=== PATIENT | female | born 1960 | race Caucasian/White ===

== ENCOUNTER 2020-06-28 13:51 | Inpatient (IN) ==
--- OUTSIDE RECORDS SUMMARY | 2020-06-28 13:53 | External Medical Summary | Continuity of Care Document ---
:1960 Author Name Cat Palencia, Provider Address Unavailable Unavailable , Care Team Providers Name Role Phone NonMNPG Talha, Provider Unavailable [email or web address] Unavailable Unavailable Problems Active medical history not documented Allergies and Adverse Reactions Allergy history not documented Medications Medications not documented Procedures Procedures not documented Immunizations Immunizations not documented Plan of Treatment Planned Observations Planned Goals not documented Results No Known Results Results not documented
--- OUTSIDE RECORDS SUMMARY | 2020-06-28 13:54 | External Medical Summary | Continuity of Care Document ---
:1960 Author Name Cat Palencia, Provider Address Unavailable Unavailable , Care Team Providers Name Role Phone NonMNPG Talha, Provider Unavailable [email or web address] Unavailable Unavailable Problems Active medical history not documented Allergies and Adverse Reactions Allergy history not documented Medications Medications not documented Procedures Procedures not documented Immunizations Immunizations not documented Plan of Treatment Planned Observations Planned Goals not documented Results No Known Results Results not documented
--- NOTE | 2020-06-28 13:55 | Emergency Department Note ---
Impression & Plan Acute dyspnea, COVID-19, Pneumonitis, Hypoxia ED Provider Note NAME: NAVIN REAVES AGE: 59 SEX: F : 1960 ARRIVES VIA: Walk-In INFORMANT: Patient, ED PROVIDER(S): Giovanni Alcala MD Chief Complaint: Shortness of breath HPI: Patient does present with worsening shortness of breath. The patient states that it is exertional. Patient does have a known history of COPD. The patient states that she has had symptoms since last Monday so approximately 8 days. The patient states she was at a family gathering prior and then was subsequently tested this past Monday with the patient does have a positive C OVID test. The patient was given a pulse oximeter and was told to return if she develops any worsening or concerning symptoms. Patient states that she did feel somewhat better yesterday and does use her inhalers. Patient states that she felt worse today with associated fatigue and shortness of breath. The patient does not have any at home oxygen to use. Patient denies any history of DVT or PE. Patient is a former smoker smoking 2 years prior. Patient does have some chest pain but only associated with cough. The patient denies any fevers or chills or lower extremity swelling. ROS: See HPI for pertinent positives and negatives. A total of 10 systems were reviewed and otherwise negative. Past medical history: See below Surgical history: See below Social history: See below Physical Exam: GENERAL: Mildly ill in appearance, mild distress. Wearing glasses and a mask. EYE EXAM: Normal conjunctiva. PERRL, no anisocoria and EOM's grossly intact w/o pain. NECK: Supple, no nuchal rigidity, no adenopathy, non-tender. No signs of meningismus. LUNGS: No audible wheezing, mild tachypnea noted. HEART: Tachycardic and regular, no MRG. ABDOMEN: Abdomen soft, non-tender, normo-active bowel sounds, no masses, no rebound or guarding. BACK: No CVA TTP. SKIN: No rashes and no bruising. UPPER EXTREMITIES: Upper extremities are grossly normal. LOWER EXTREMITIES: Grossly normal, no edema. Negative Homans sign bilaterally. NEURO EXAM: A&O x3, cranial nerves II-XII grossly intact, normal speech, moves all 4 extremities on command w/o issue. Differential diagnoses: Reactive airway disease, pneumonia, pneumothorax, COPD, CHF, infections, cardiac ischemia, pulmonary embolism, musculoskeletal, gastrointestinal, as well as other pathologies. Course: Patient was seen and evaluated the bedside. Full history physical exam was performed. EKG: Indication: Shortness of breath Sinus tachycardia, rate of 102, normal intervals, normal axis, slight depressions in the lateral leads, no T wave inversions. Depressions as well as the patient's increase in rate are new from comparison EKG September 16, 2015. Imaging Studies: Radiology results as stated below per my review in the radiologist's interpretation: XR chest 1V portable HISTORY: 59 years-old Female weakness acute weakness COMPARISON: Chest and rib radiographs 09/16/2015 TECHNIQUE: Portable AP view of the chest FINDINGS: Cardiomediastinal and hilar silhouettes are within normal limits. There is mild interstitial coarsening of the mid and lower lung zones which is new from comparison. No pneumothorax, large pleural effusion or overt pulmonary edema. Mild blunting of the lateral costophrenic angles. Lungs are mildly hyperinflated. Bones appear grossly intact. IMPRESSION: Mild interstitial coarsening of the mid and lower lung zones is new from the 2015 exam. Differential considerations would include a nonspecific atypical pneumonitis versus fibrotic changes. ACT 112: Negative or not required by law. The above report was generated using voice recognition software. It may contain grammatical, syntax or spelling errors. Electronically signed by: Jose Manuel Yoon M.D. 06/28/2020 4:18 PM Dictated: 06/28/20 1616 Transcribed: 06/28/20 1616 Cardiac monitoring: An order was placed for continuous cardiac monitoring. The monitor shows a rate of 106 with sinus tachycardia rhythm. MDM: Patient was seen due to shortness of breath and the patient is already had a positive cover test. Blood work was obtained. The patient did receive a dose of steroids and was placed on nasal cannula oxygen. Patient has a normal white count H&H and platelet count. The patient does have mild lymphopenia. Patient's kidney function is unremarkable. Troponin is undetectable. The patient did have some slight EKG changes but I believe this may be rate related and due to her concomitant COVID illness. The patient upon reassessment feeling improved but given the patient's history of COPD, positive coronavirus test, and necessary supplemental oxygen I believe the patient would be better suited for admission at this time. I did speak with the on-call hospitalist Dr. Lomeli and the patient was admitted to the [facility] service. Critical Care: I have personally spent 35 minutes of critical care time in direct management of this patient. This includes bedside care, interpretation of diagnostic studies, and testing, discussion with consultants, patient, and family members, and other require inpatient management activities. This 35 minutes is in excess of all separately billable procedures. Past Med/Surg History Medical History COPD (chronic obstructive pulmonary disease) Surgical History No pertinent past surgical history Social History Smoking Status: Former smoker Feels Safe at Home: Yes Allergies Allergies Allergy/AdvReac Type Severity Reaction Status Date / Time No Known Allergies Allergy Unverified 06/28/20 15:20 Home Meds Home Medications Medication Instructions Recorded Confirmed acetaminophen [Tylenol Extra 1,000 mg PO Q6H PRN 06/28/20 06/28/20 Strength] albuterol sulfate 2 inh INHALATION UD PRN 06/28/20 06/28/20 buspirone 10 mg PO BID PRN 06/28/20 06/28/20 fluticasone furoate-vilanterol 1 inh INHALATION DAILY 06/28/20 06/28/20 [Breo Ellipta] multivitamin 1 tab PO DAILY 06/28/20 06/28/20 umeclidinium [Incruse Ellipta] 1 inh INHALATION DAILY 06/28/20 06/28/20 Results & Data (ED) Vital Signs Vital Signs - 24 hr 06/28/20 13:58 06/28/20 14:02 06/28/20 14:28 Temperature 37.2 C Temperature Source Oral Pulse Rate 98 H 106 H Pulse Rate from SpO2 Sensor 92 H Respiratory Rate 21 26 H Blood Pressure 152/89 H 152/89 H Blood Pressure Mean 96 110 Pulse Oximetry 97 91 90 Oxygen Delivery Method Nasal Cannula Room Air Nasal Cannula Oxygen Flow Rate 2 Sepsis Recent Fever Within 48 Hours No Sepsis New/Unexplained Change in Mental Status No Sepsis Action Taken by Nursing Physician Notified Oxygen Flow Rate - Titration 2 Pulse Oximetry Post Tiitration 97 06/28/20 14:41 06/28/20 14:50 06/28/20 15:00 Temperature Temperature Source Pulse Rate 90 89 89 Pulse Rate from SpO2 Sensor 80 78 84 Respiratory Rate 20 26 H 22 Blood Pressure Blood Pressure Mean Pulse Oximetry 97 97 97 Oxygen Delivery Method Oxygen Flow Rate Sepsis Recent Fever Within 48 Hours Sepsis New/Unexplained Change in Mental Status Sepsis Action Taken by Nursing Oxygen Flow Rate - Titration Pulse Oximetry Post Tiitration 06/28/20 15:10 06/28/20 15:12 06/28/20 17:43 Temperature Temperature Source Pulse Rate 82 85 Pulse Rate from SpO2 Sensor 82 84 Respiratory Rate 19 24 Blood Pressure 126/86 146/69 H Blood Pressure Mean 90 85 Pulse Oximetry 97 92 Oxygen Delivery Method Nasal Cannula Oxygen Flow Rate 2 Sepsis Recent Fever Within 48 Hours Sepsis New/Unexplained Change in Mental Status Sepsis Action Taken by Nursing Oxygen Flow Rate - Titration Pulse Oximetry Post Tiitration Home Medications Current Medication List: was personally reviewed by me Laboratory Data Attestation: I reviewed the patient's lab results. Result diagrams: 06/28/20 15:10 06/28/20 15:10 Lab Results 06/28/20 06/28/20 06/28/20 Range/Units 15:10 15:10 15:10 WBC 8.59 (4.8-10.8) K/uL RBC 5.00 (4.2-5.4) M/uL Hgb 15.2 (12.0-16.0) g/dL Hct 43.1 (37-47) % MCV 86.2 (80-100) fL MCH 30.4 (25-34) pg MCHC 35.3 (32-36) g/dL RDW Std Deviation 38.7 (36.4-46.3) fL RDW Coeff of Karli 12.2 (11.5-14.5) % Plt Count 177 (130-400) K/uL MPV 9.1 (7.4-10.4) fL Immature Gran % (Auto) 0.1 % Neut % (Auto) 79.3 % Lymph % (Auto) 10.6 % Bay % (Auto) 9.8 % Eos % (Auto) 0.0 % Baso % (Auto) 0.2 % Neut # (Auto) 6.81 H (1.4-6.5) K/uL Lymph # (Auto) 0.91 L (1.2-3.4) K/uL Bay # (Auto) 0.84 H (0.11-0.59) K/uL Eos # (Auto) 0.00 (0-0.5) K/uL Baso # (Auto) 0.02 (0-0.2) K/uL Immature Gran # (Auto) 0.01 (0.00-0.02) K/uL ESR (0-21) mm/hr D-Dimer (0-500) ug/L FEU Sodium 135 L (136-145) mmol/L Potassium 3.6 (3.5-5.1) mmol/L Chloride 100 (98-107) mmol/L Carbon Dioxide 25 (21-32) mmol/L Anion Gap 10.0 (3-11) BUN 4 L (7-18) mg/dl Creatinine 0.53 L (0.6-1.2) mg/dl Est Cr Clr Drug Dosing 101.6 ml/min Est GFR ( Amer) 119.6 Est GFR (Non-Af Amer) 103.2 BUN/Creatinine Ratio 6.7 L (10-20) Glucose 89 (70-99) mg/dl Lactate 0.7 (0.4-2.0) mmol/L Calcium 8.2 L (8.5-10.1) mg/dl Magnesium 2.1 (1.8-2.4) mg/dl Ferritin (8-388) ng/ml Total Bilirubin 0.5 (0.2-1) mg/dl AST 24 (15-37) U/L ALT 34 (12-78) U/L Alkaline Phosphatase 53 (45-117) U/L Troponin I < 0.015 (0-0.045) ng/ml C-Reactive Protein (0-0.29) mg/dl Total Protein 7.1 (6.4-8.2) gm/dl Albumin 3.1 L (3.4-5.0) gm/dl Globulin 4.0 (2.5-4.0) gm/dl Albumin/Globulin Ratio 0.8 L (0.9-2) Procalcitonin (0-0.5) ng/ml TSH 0.560 (0.300-4.500) uIu/ml Urine Color Urine Appearance (Clear) Urine pH (4.5-7.5) Ur Specific [place] (1.000-1.030) Urine Protein (Negative) Urine Glucose (UA) (Negative) Urine Ketones (Negative) Urine Blood (Negative) Urine Nitrite (Negative) Urine Bilirubin (Negative) Urine Urobilinogen (Negative) Ur Leukocyte Esterase (Negative) Urine RBC (0-4) /hpf Urine WBC (0-5) /hpf Ur Epithelial Cells (0-5) /lpf Urine Bacteria (Negative) 06/28/20 06/28/20 06/28/20 Range/Units 15:10 15:10 15:10 WBC (4.8-10.8) K/uL RBC (4.2-5.4) M/uL Hgb (12.0-16.0) g/dL Hct (37-47) % MCV (80-100) fL MCH (25-34) pg MCHC (32-36) g/dL RDW Std Deviation (36.4-46.3) fL RDW Coeff of Karli (11.5-14.5) % Plt Count (130-400) K/uL MPV (7.4-10.4) fL Immature Gran % (Auto) % Neut % (Auto) % Lymph % (Auto) % Bay % (Auto) % Eos % (Auto) % Baso % (Auto) % Neut # (Auto) (1.4-6.5) K/uL Lymph # (Auto) (1.2-3.4) K/uL Bay # (Auto) (0.11-0.59) K/uL Eos # (Auto) (0-0.5) K/uL Baso # (Auto) (0-0.2) K/uL Immature Gran # (Auto) (0.00-0.02) K/uL ESR 31 H (0-21) mm/hr D-Dimer 230 (0-500) ug/L FEU Sodium (136-145) mmol/L Potassium (3.5-5.1) mmol/L Chloride (98-107) mmol/L Carbon Dioxide (21-32) mmol/L Anion Gap (3-11) BUN (7-18) mg/dl Creatinine (0.6-1.2) mg/dl Est Cr Clr Drug Dosing ml/min Est GFR ( Amer) Est GFR (Non-Af Amer) BUN/Creatinine Ratio (10-20) Glucose (70-99) mg/dl Lactate (0.4-2.0) mmol/L Calcium (8.5-10.1) mg/dl Magnesium (1.8-2.4) mg/dl Ferritin 288.6 (8-388) ng/ml Total Bilirubin (0.2-1) mg/dl AST (15-37) U/L ALT (12-78) U/L Alkaline Phosphatase (45-117) U/L Troponin I (0-0.045) ng/ml C-Reactive Protein 7.39 H (0-0.29) mg/dl Total Protein (6.4-8.2) gm/dl Albumin (3.4-5.0) gm/dl Globulin (2.5-4.0) gm/dl Albumin/Globulin Ratio (0.9-2) Procalcitonin (0-0.5) ng/ml TSH (0.300-4.500) uIu/ml Urine Color Urine Appearance (Clear) Urine pH (4.5-7.5) Ur Specific [place] (1.000-1.030) Urine Protein (Negative) Urine Glucose (UA) (Negative) Urine Ketones (Negative) Urine Blood (Negative) Urine Nitrite (Negative) Urine Bilirubin (Negative) Urine Urobilinogen (Negative) Ur Leukocyte Esterase (Negative) Urine RBC (0-4) /hpf Urine WBC (0-5) /hpf Ur Epithelial Cells (0-5) /lpf Urine Bacteria (Negative) 06/28/20 06/28/20 Range/Units 15:10 17:45 WBC (4.8-10.8) K/uL RBC (4.2-5.4) M/uL Hgb (12.0-16.0) g/dL Hct (37-47) % MCV (80-100) fL MCH (25-34) pg MCHC (32-36) g/dL RDW Std Deviation (36.4-46.3) fL RDW Coeff of Karli (11.5-14.5) % Plt Count (130-400) K/uL MPV (7.4-10.4) fL Immature Gran % (Auto) % Neut % (Auto) % Lymph % (Auto) % Bay % (Auto) % Eos % (Auto) % Baso % (Auto) % Neut # (Auto) (1.4-6.5) K/uL Lymph # (Auto) (1.2-3.4) K/uL Bay # (Auto) (0.11-0.59) K/uL Eos # (Auto) (0-0.5) K/uL Baso # (Auto) (0-0.2) K/uL Immature Gran # (Auto) (0.00-0.02) K/uL ESR (0-21) mm/hr D-Dimer (0-500) ug/L FEU Sodium (136-145) mmol/L Potassium (3.5-5.1) mmol/L Chloride (98-107) mmol/L Carbon Dioxide (21-32) mmol/L Anion Gap (3-11) BUN (7-18) mg/dl Creatinine (0.6-1.2) mg/dl Est Cr Clr Drug Dosing ml/min Est GFR ( Amer) Est GFR (Non-Af Amer) BUN/Creatinine Ratio (10-20) Glucose (70-99) mg/dl Lactate (0.4-2.0) mmol/L Calcium (8.5-10.1) mg/dl Magnesium (1.8-2.4) mg/dl Ferritin (8-388) ng/ml Total Bilirubin (0.2-1) mg/dl AST (15-37) U/L ALT (12-78) U/L Alkaline Phosphatase (45-117) U/L Troponin I (0-0.045) ng/ml C-Reactive Protein (0-0.29) mg/dl Total Protein (6.4-8.2) gm/dl Albumin (3.4-5.0) gm/dl Globulin (2.5-4.0) gm/dl Albumin/Globulin Ratio (0.9-2) Procalcitonin < 0.05 (0-0.5) ng/ml TSH (0.300-4.500) uIu/ml Urine Color Yellow Urine Appearance Clear (Clear) Urine pH 6.0 (4.5-7.5) Ur Specific [place] 1.010 (1.000-1.030) Urine Protein Negative (Negative) Urine Glucose (UA) Negative (Negative) Urine Ketones 3+ H (Negative) Urine Blood Negative (Negative) Urine Nitrite Negative (Negative) Urine Bilirubin Negative (Negative) Urine Urobilinogen Negative (Negative) Ur Leukocyte Esterase Trace H (Negative) Urine RBC 0-4 (0-4) /hpf Urine WBC 0-5 (0-5) /hpf Ur Epithelial Cells 20-30 H (0-5) /lpf Urine Bacteria 2+ H (Negative) Administered Medications Discontinued Medications Albuterol (Albuterol Hfa 8 Gm Inhaler) 2 puffs INH NOW ONE Stop: 06/28/20 14:19 Last Admin: 06/28/20 15:19 Dose: 2 puffs Documented by: [id number] Sodium Chloride (Nss) 500 mls @ 999 mls/hr IV .Q31M TESSA Stop: 06/28/20 14:45 Last Infusion: 06/28/20 15:49 Dose: 0 mls/hr Documented by: [id number] Admin: 06/28/20 15:18 Dose: 999 mls/hr Documented by: [id number] Dexamethasone Sodium Phosphate (10 mg/ Syringe) 2.5 mls @ 1 mls/min IV NOW STA Stop: 06/28/20 14:15 Last Admin: 06/28/20 15:18 Dose: 1 mls/min Documented by: [id number] Discharge Plan Visit Data Chief Complaint: Illness Stated Complaint: POSITIVE COVID ED Provider: Giovanni Alcala Discharge Problem: Acute dyspnea, COVID-19, Pneumonitis, Hypoxia Forms Stand Alone Forms: [facility] Prescriptions Prescriptions: No Action buspirone 5 mg tablet 10 mg PO BID PRN (Reason: Anxiety) RF: 0 acetaminophen [Tylenol Extra Strength] 500 mg Tablet 1,000 mg PO Q6H PRN (Reason: Fever Or Pain) RF: 0 albuterol sulfate 90 mcg/actuation HFA aerosol inhaler 2 inh INHALATION UD PRN (Reason: Shortness Of Breath Or Wheezing) RF: 0 multivitamin Tablet,Chewable 1 tab PO DAILY RF: 0 Incruse Ellipta 62.5 mcg/actuation blister with device 1 inh INHALATION DAILY RF: 0 Breo Ellipta 200-25 mcg/dose blister with device 1 inh INHALATION DAILY RF: 0
[2020-06-28] MEDS ORDERED: DEXAMETHASONE SOD PHOSPHATE 10 MG in SYRINGE 0 ML IV STA (14:13)
[2020-06-28] MEDS ORDERED: SODIUM CHLORIDE 0.9% 500 ML IV SCH (14:15)
[2020-06-28] MEDS ORDERED: ALBUTEROL HFA 8 GM INHALER INH ONE (14:18)
[2020-06-28 15:25] LABS: Basophils # (auto) 0.02 K/uL (0-0.2); Basophils % (auto) 0.2 %; Hematocrit (blood only) 43.1 % (37-47); Hemoglobin 15.2 g/dL (12.0-16.0); Immature Granulocytes # (auto) 0.01 K/uL (0.00-0.02); Immature Granulocytes % (auto) 0.1 %; Lymphocytes # (auto) 0.91 K/uL (1.2-3.4); Lymphocytes % (auto) 10.6 %; Mean Corpuscular Hemoglobin 30.4 pg (25-34); Mean Corpuscular Hgb Conc 35.3 g/dL (32-36); Mean Corpuscular Volume 86.2 fL (80-100); Mean Platelet Volume 9.1 fL (7.4-10.4); Monocytes # (auto) 0.84 K/uL (0.11-0.59); Monocytes % (auto) 9.8 %; Neutrophils # (auto) 6.81 K/uL (1.4-6.5); Neutrophils % (auto) 79.3 %; Platelet Count 177 K/uL (130-400); RDW Coefficient of Variation 12.2 % (11.5-14.5); RDW Standard Deviation 38.7 fL (36.4-46.3); White Blood Count 8.59 K/uL (4.8-10.8)
[2020-06-28 15:42] LABS: Alanine Aminotransferase 34 U/L (12-78); Albumin Level 3.1 gm/dl (3.4-5.0); Aspartate Aminotransferase 24 U/L (15-37); BUN Creatinine Ratio 6.7 (10-20); Blood Urea Nitrogen 4 mg/dl (7-18); Calcium 8.2 mg/dl (8.5-10.1); Carbon Dioxide 25 mmol/L (21-32); Chloride 100 mmol/L (98-107); Creatinine Clr Calc Pharmacy 101.6 ml/min; Est GFR (African American) 119.6; Est GFR (Non-African American) 103.2; Glucose 89 mg/dl (70-99); Magnesium 2.1 mg/dl (1.8-2.4); Potassium 3.6 mmol/L (3.5-5.1); Sodium 135 mmol/L (136-145)
[2020-06-28 15:52] LABS: Albumin Globulin Ratio 0.8 (0.9-2); Alkaline Phosphatase 53 U/L (45-117); Bilirubin,Total 0.5 mg/dl (0.2-1); Total Protein 7.1 gm/dl (6.4-8.2); Troponin I < 0.015 ng/ml (0-0.045)
--- NOTE | 2020-06-28 16:20 | XRay Report ---
XR chest 1V portable HISTORY: 59 years-old Female weakness acute weakness COMPARISON: Chest and rib radiographs 09/16/2015 TECHNIQUE: Portable AP view of the chest FINDINGS: Cardiomediastinal and hilar silhouettes are within normal limits. There is mild interstitial coarseni ng of the mid and lower lung zones which is new from comparison. No pneumothorax, large pleural effus ion or overt pulmonary edema. Mild blunting of the lateral costophrenic angles. Lungs are mildly hype rinflated. Bones appear grossly intact. IMPRESSION: Mild interstitial coarsening of the mid and lower lung zones is new from the 2015 exam. D ifferential considerations would include a nonspecific atypical pneumonitis versus fibrotic changes. ACT 112: Negative or not required by law. The above report was generated using voice recognition software. It may contain grammatical, syntax o r spelling errors. Electronically signed by: Jose Manuel Yoon M.D. 06/28/2020 4:18 PM
--- NOTE | 2020-06-28 17:10 | History & Physical Report ---
Date of Service June 28, 2020 Assessment & Plan (1) COVID-19: Acute Respiratory Failure with Hypoxia COVID Pneumonitis CXR:Mild interstitial coarsening of the mid and lower lung zones is new from the 2015 exam. Differential considerations would include a nonspecific atypical pneumonitis versus fibrotic changes. No leukocytosis Mild lymphopenia ESR 31, CRP 7.39 Normal d-dimer Normal ferritin Normal procalcitonin Blood culture pending Obtain sputum culture Isolation precautions Started on IV dexamethasone Also started on Rocephin, doxycycline for possible bacterial infection IV fluids Monitor on telemetry Pulmonology consulted Continue home inhalers Continue supplemental oxygen as needed Consider Remdesivir if clinically deteriorates Patient currently not interested in coalescent plasma. Provided information. Continue vitamin C, zinc, vitamin D supplement Abnormal UA Rule out urinary tract infection On Rocephin empirically Urine culture pending COPD Past tobacco use--quit 2 years ago On IV dexamethasone as above Continue home inhalers Continue supplemental oxygen as needed Anxiety disorder On BuSpar intermittently Currently does not want to be continued on BuSpar Abnormal EKG Sinus tachycardia EKG changes likely secondary to his tachycardia We will repeat EKG in a.m. Troponin negative Denies chest pain DVT prophylaxis Lovenox SQ CODE STATUS Full code Disposition Expected discharge home when medically stable History of Present Illness Chief Complaint: COVID Pneumonitis Primary Care Provider: Morgan Ann MD Patient is a 59-year-old female with history of COPD, past tobacco use disorder, anxiety disorder and other medical problems presents with history of worsening shortness of breath since about 10 days duration. Patient admits to have positive exposure to family while camping visitor from [place] and had similar symptoms. Patient was tested positive for COVID on June 23, 2020. She admits to have dry cough since 10 days duration which progressively worsened with greenish expectoration but denies any hemoptysis. Shortness of breath has been progressively worsened over the last few days which is worse with exertion. She had fever associated with chills for couple of days and currently afebrile. She admits to have very poor appetite and have lost about 9 pounds in 9 days. She also reports having diarrhea for a couple of days which currently resolved. She did have headache which improved with medications. Still have loss of taste and smell currently. She quit smoking 2 years ago. She currently takes BuSpar for anxiety intermittently and currently states that she does not require it for management of her anxiety. Denies any history of chest pain, palpitations, d izziness, pedal edema, fall, head trauma, LOC, change in vision, blood in stools, hematuria, recent change in medications. She is currently not interested in cortisone plasma transfusion and would like to know more information about the same. Allergies Allergy/AdvReac Type Severity Reaction Status Date / Time No Known Allergies Allergy Unverified 06/28/20 15:20 Home Medications Home Medications Medication Instructions Recorded Confirmed Type acetaminophen [Tylenol Extra 1,000 mg PO Q6H PRN 06/28/20 06/28/20 History Strength] albuterol sulfate 2 inh INHALATION UD PRN 06/28/20 06/28/20 History buspirone 10 mg PO BID PRN 06/28/20 06/28/20 History fluticasone furoate-vilanterol 1 inh INHALATION DAILY 06/28/20 06/28/20 History [Breo Ellipta] multivitamin 1 tab PO DAILY 06/28/20 06/28/20 History umeclidinium [Incruse Ellipta] 1 inh INHALATION DAILY 06/28/20 06/28/20 History Past Med/Surg History Medical History (Updated 06/28/20 @ 19:10 by Israel Lomeli MD) COPD (chronic obstructive pulmonary disease) Surgical History No pertinent past surgical history Family History (Updated 06/28/20 @ 19:11 by Israel Lomeli MD) Mother Breast cancer Social History (Updated 06/28/20 @ 19:12 by Israel Lomeli MD) Smoking Status: Former smoker Hx Alcohol Use: Yes Feels Safe at Home: Yes Review of Systems Review of Systems: All systems reviewed & are unremarkable except as noted in HPI & below Physical Exam Physical Exam: Physical Exam: Vitals signs as noted above General Appearance:Thin, chronic ill appearing, no apparent distress Head: normocephalic, Atraumatic Eyes: normal inspection, EOMI Neck: supple, Trachea midline Respiratory/Chest: Decreased breath sounds, + B/L wheezing, No accessory muscle use Cardiovascular: S1, S2, No murmur Abdomen/GI:Soft, Non tender, Bowel sounds present Extremities/Musculoskelatal:normal inspection, no edema Neurologic/Psych:AAOX3, grossly no focal neurological deficits Skin: normal color, warm Results & Data Results & Data ([facility]) Vital Signs (Past 12 Hours) Vital Signs Temp Pulse Resp BP Pulse Ox 06/28/20 15:12 85 24 126/86 06/28/20 15:10 82 19 97 06/28/20 15:00 89 22 97 06/28/20 14:50 89 26 H 97 06/28/20 14:41 90 20 97 06/28/20 14:28 90 06/28/20 14:02 37.2 C 106 H 26 H 152/89 H 91 06/28/20 13:58 98 H 21 152/89 H 97 Laboratory Results Short CBC 06/28/20 Range/Units 15:10 WBC 8.59 (4.8-10.8) K/uL Hgb 15.2 (12.0-16.0) g/dL Hct 43.1 (37-47) % Plt Count 177 (130-400) K/uL BMP 06/28/20 15:10 Sodium 135 L Potassium 3.6 Chloride 100 Carbon Dioxide 25 BUN 4 L Creatinine 0.53 L Glucose 89 Calcium 8.2 L Cardiac Enzymes 06/28/20 Range/Units 15:10 Troponin I < 0.015 (0-0.045) ng/ml Liver Function 06/28/20 Range/Units 15:10 Total Bilirubin 0.5 (0.2-1) mg/dl AST 24 (15-37) U/L ALT 34 (12-78) U/L Alkaline Phosphatase 53 (45-117) U/L Albumin 3.1 L (3.4-5.0) gm/dl Urine 06/28/20 Range/Units 17:45 Urine Color Yellow Urine Appearance Clear (Clear) Urine pH 6.0 (4.5-7.5) Ur Specific [place] 1.010 (1.000-1.030) Urine Protein Negative (Negative) Urine Glucose (UA) Negative (Negative) Diagnostic Findings EKG: Sinus tachycardia, nonspecific ST abnormality, QTC 450.
[2020-06-28 17:53] LABS: Appearance Urine Clear (Clear); Bilirubin Urine Negative (Negative); Blood Urine Negative (Negative); Color Urine Yellow; Glucose Urine UA Negative (Negative); Ketones Urine 3+ (Negative); Leukocyte Esterase Urine Trace (Negative); Nitrite Urine Negative (Negative); Protein Urine Negative (Negative); Urobilinogen Urine Negative (Negative)
[2020-06-28 18:02] LABS: Epithelial Cell Urine 20-30 /lpf (0-5); RBC Urine 0-4 /hpf (0-4)
[2020-06-28 18:03] LABS: Bacteria Urine 2+ (Negative); WBC Urine 0-5 /hpf (0-5)
[2020-06-28 18:12] LABS: D Dimer 230 ug/L FEU (0-500)
[2020-06-28 18:18] LABS: C Reactive Protein 7.39 mg/dl (0-0.29); Ferritin 288.6 ng/ml (8-388)
[2020-06-28] MEDS ORDERED: ALBUTEROL HFA 8 GM INHALER INH PRN (19:40)
[2020-06-28] MEDS ORDERED: ACETAMINOPHEN 325 MG TAB PO PRN (19:40)
[2020-06-28] MEDS ORDERED: PROMETHAZINE HCL 6.25 MG in SODIUM CHLORIDE 0.9% 50 ML IV PRN (19:40)
[2020-06-28] MEDS ORDERED: POLYETHYLENE (MIRALAX) 17 GM PACK PO PRN (19:40)
[2020-06-28] MEDS: NSS + 20MEQ KCL 20 MEQ/1,000 ML BAG IV SCH (22:47)
[2020-06-28] MEDS: ASCORBIC ACID 500 MG TAB PO SCH (22:52)
[2020-06-28] MEDS: ENOXAPARIN INJ 40 MG/0.4 ML SYR SQ SCH (22:52)
[2020-06-28] MEDS: CHOLECALCIFEROL 1,000 UNITS 25 MCG TAB PO SCH (22:52)
[2020-06-28] MEDS: ZINC SULFATE 220 MG CAPSULE PO SCH (22:53)
[2020-06-28] MEDS: DOXYCYCLINE HYCLATE 100 MG in DEXTROSE 5% 100 ML IV SCH (22:53)
[2020-06-28] MEDS: cefTRIAXone SODIUM 1,000 MG in DEXTROSE 5% 50 ML IV SCH (22:53)
--- NOTE | 2020-06-29 00:02 | Electrocardiogram Report ---
Test Reason : Blood Pressure : / mmHG Vent. Rate : 102 BPM Atrial Rate : 102 BPM P-R Int : 138 ms QRS Dur : 086 ms QT Int : 346 ms P-R-T Axes : 077 072 054 degrees QTc Int : 450 ms Poor data quality, interpretation may be adversely affected Sinus tachycardia Nonspecific ST abnormality Abnormal ECG When compared with ECG of 16-SEP-2015 11:30, Vent. rate has increased BY 39 BPM Confirmed by Scooter Vincent ([id number]) on 06/29/2020 12:02:51 AM Referred By: REFERRED SELF Confirmed By:Scooter Vincent
[2020-06-29 06:54] LABS: Basophils # (auto) 0.01 K/uL (0-0.2); Basophils % (auto) 0.2 %; Hematocrit (blood only) 42.6 % (37-47); Hemoglobin 14.8 g/dL (12.0-16.0); Immature Granulocytes # (auto) 0.02 K/uL (0.00-0.02); Immature Granulocytes % (auto) 0.4 %; Mean Corpuscular Hemoglobin 30.3 pg (25-34); Mean Corpuscular Hgb Conc 34.7 g/dL (32-36); Mean Corpuscular Volume 87.3 fL (80-100); Mean Platelet Volume 9.1 fL (7.4-10.4); Monocytes # (auto) 0.57 K/uL (0.11-0.59); Monocytes % (auto) 11.4 %; Neutrophils # (auto) 3.81 K/uL (1.4-6.5); Platelet Count 225 K/uL (130-400); RDW Coefficient of Variation 12.4 % (11.5-14.5); RDW Standard Deviation 39.8 fL (36.4-46.3); Red Blood Count 4.88 M/uL (4.2-5.4); White Blood Count 5.01 K/uL (4.8-10.8)
[2020-06-29 07:17] LABS: Alanine Aminotransferase 33 U/L (12-78); Albumin Level 2.7 gm/dl (3.4-5.0); Aspartate Aminotransferase 22 U/L (15-37); BUN Creatinine Ratio 11.2 (10-20); Blood Urea Nitrogen 5 mg/dl (7-18); Carbon Dioxide 26 mmol/L (21-32); Chloride 106 mmol/L (98-107); Creatinine Clr Calc Pharmacy 112.2 ml/min; Est GFR (African American) 123.6; Est GFR (Non-African American) 106.6; Glucose 113 mg/dl (70-99); Magnesium 2.3 mg/dl (1.8-2.4); Potassium 3.8 mmol/L (3.5-5.1); Sodium 139 mmol/L (136-145)
[2020-06-29 07:22] LABS: Albumin Globulin Ratio 0.6 (0.9-2); Alkaline Phosphatase 55 U/L (45-117); Bilirubin,Total 0.5 mg/dl (0.2-1); C Reactive Protein 9.87 mg/dl (0-0.29); Ferritin 303.6 ng/ml (8-388); Globulin 4.2 gm/dl (2.5-4.0); Total Protein 6.9 gm/dl (6.4-8.2); Troponin I < 0.015 ng/ml (0-0.045)
[2020-06-29] MEDS: dexAMETHasone 6 MG in DEXTROSE 5% 25 ML IV SCH (08:26)
[2020-06-29] MEDS: NSS + 20MEQ KCL 20 MEQ/1,000 ML BAG IV SCH (08:26)
[2020-06-29] MEDS: DOXYCYCLINE HYCLATE 100 MG in DEXTROSE 5% 100 ML IV SCH ×2 (08:26→21:54)
[2020-06-29] MEDS: ASCORBIC ACID 500 MG TAB PO SCH ×2 (08:30→21:56)
[2020-06-29] MEDS: MULTIVITAMIN TAB PO SCH (08:30)
[2020-06-29] MEDS: ZINC SULFATE 220 MG CAPSULE PO SCH (08:30)
[2020-06-29] MEDS: CHOLECALCIFEROL 1,000 UNITS 25 MCG TAB PO SCH (08:31)
[2020-06-29] MEDS: FLUTICASONE/VILANTEROL 200/25MCG 14 PUFFS/INHALER INH SCH (12:01)
[2020-06-29] MEDS: UMECLIDINIUM BROMIDE 62.5MCG/BLISTER 7 PUFFS/INHALER INH SCH (12:01)
--- NOTE | 2020-06-29 12:53 | Communication Note ---
Date of Service: June 29, 2020 Attending: Dr. Valencia Consult for Mrs. Forman originally placed for advice regarding administering Remdesivir. After discussion with Dr. Lomeli, it was determined the consult would be canceled as patient was showing some improvement and the only question was whether to administer the antiviral. Chart reviewed. Patient received positive results for COVID-19 on 06/23/2020. Swab would have been completed no later than 06/21/2020. At this point chest x-ray shows no evidence of abnormality other than some flattening of the diaphragm. There is no evidence of infiltrate or ARDs-like picture. Based on criteria from CDC, patient is not meet criteria for administration of antiviral. Patient should be monitored per CDC guidelines for COVID positive findings and treated supportively. Patient was not seen or examined. Chart review only. Discussion with infection control and Dr. Valencia. Please do not bill for this patient as consult is being canceled. Coding Level of Care Code None
--- NOTE | 2020-06-29 13:25 | Hospitalist Progress Note ---
Date of Service June 29, 2020 Assessment & Plan (1) COVID-19: Acute Respiratory Failure with Hypoxia COVID Pneumonitis CXR:Mild interstitial coarsening of the mid and lower lung zones is new from the 2015 exam. Differential considerations would include a nonspecific atypical pneumonitis versus fibrotic changes. Patient currently not interested in coalescent plasma. Provided information. No leukocytosis Mild lymphopenia ESR 31, CRP 7.39 Normal d-dimer Normal ferritin Normal procalcitonin Blood/sputum culture pending Continue Isolation precautions Continue IV dexamethasone 6mg daily Continue Rocephin, doxycycline Day #2 IV fluids as needed Continue home inhalers Continue supplemental oxygen as needed Doesn't meet criteria for Remdesivir as per Pulmonology Continue nutrition supplements Abnormal UA R/O UTI On Rocephin empirically Urine culture:Pin point growth Diarrhea Likely due to COVID Will consider to R/O C diff if worsens COPD Past tobacco use--quit 2 years ago On IV dexamethasone as above Continue home inhalers Continue supplemental oxygen as needed Anxiety disorder On BuSpar intermittently Currently does not want to be continued on BuSpar Abnormal EKG Sinus tachycardia EKG changes likely secondary to his tachycardia Troponin negative Denies chest pain DVT Px: Lovenox SQ CODE STATUS Full code Disposition Expected discharge home when medically stable Admission and Anticipated Discharge Date Admission Date: June 28, 2020 Subjective Patient is seen and examined at bedside Still has cough with yellowish-green expectoration Shortness of breath about the same as yesterday Appetite remains poor Admits to having intermittent wheezing Also states having diarrhea overnight Denies chest pain, nausea, vomiting, abdominal pain, dizziness Discussed with pulmonology edel--Doesn't meet criteria for Remdesivir Review of Systems Review of Systems: All systems reviewed & are unremarkable except as noted in HPI & below Physical Exam Physical Exam: Physical Exam: Vitals signs as noted above General Appearance:Thin, chronic ill appearing, no apparent distress Head: normocephalic, Atraumatic Eyes: normal inspection, EOMI Neck: supple, Trachea midline Respiratory/Chest: Decreased breath sounds, CTA, No accessory muscle use Cardiovascular: S1, S2, No murmur Abdomen/GI:Soft, Non tender, Bowel sounds present Extremities/Musculoskelatal:normal inspection, no edema Neurologic/Psych:AAOX3, grossly no focal neurological deficits Skin: normal color, warm Results & Data Results & Data ([facility]) Vital Signs (Past 12 Hours) Vital Signs Temp Pulse Resp BP Pulse Ox 06/29/20 12:02 36.6 C 72 18 146/79 H 94 06/29/20 08:23 36.5 C 92 H 18 133/76 93 06/29/20 07:51 36.5 C 73 18 136/78 95 06/29/20 04:59 36.8 C 69 18 142/87 H 96 Laboratory Results Short CBC 06/28/20 06/29/20 Range/Units 15:10 06:33 WBC 8.59 5.01 (4.8-10.8) K/uL Hgb 15.2 14.8 (12.0-16.0) g/dL Hct 43.1 42.6 (37-47) % Plt Count 177 225 (130-400) K/uL BMP 06/28/20 06/29/20 15:10 06:33 Sodium 135 L 139 Potassium 3.6 3.8 Chloride 100 106 Carbon Dioxide 25 26 BUN 4 L 5 L Creatinine 0.53 L 0.48 L Glucose 89 113 H Calcium 8.2 L 8.0 L Cardiac Enzymes 06/28/20 06/29/20 Range/Units 15:10 06:33 Troponin I < 0.015 < 0.015 (0-0.045) ng/ml Liver Function 06/28/20 06/29/20 Range/Units 15:10 06:33 Total Bilirubin 0.5 0.5 (0.2-1) mg/dl AST 24 22 (15-37) U/L ALT 34 33 (12-78) U/L Alkaline Phosphatase 53 55 (45-117) U/L Albumin 3.1 L 2.7 L (3.4-5.0) gm/dl Urine 06/28/20 Range/Units 17:45 Urine Color Yellow Urine Appearance Clear (Clear) Urine pH 6.0 (4.5-7.5) Ur Specific [place] 1.010 (1.000-1.030) Urine Protein Negative (Negative) Urine Glucose (UA) Negative (Negative)
[2020-06-29] MEDS ORDERED: BUDESONIDE 90 MCG INH INH SCH (14:00)
[2020-06-29] MEDS: LACTOBACILLUS ACIDOPHILUS (FLORANEX) TAB PO SCH ×2 (17:23→21:56)
[2020-06-29] MEDS: cefTRIAXone SODIUM 1,000 MG in DEXTROSE 5% 50 ML IV SCH (21:54)
[2020-06-29] MEDS: ENOXAPARIN INJ 40 MG/0.4 ML SYR SQ SCH (21:55)
[2020-06-30 05:58] LABS: Basophils # (auto) 0.01 K/uL (0-0.2); Basophils % (auto) 0.1 %; Hematocrit (blood only) 41.5 % (37-47); Hemoglobin 14.4 g/dL (12.0-16.0); Immature Granulocytes # (auto) 0.05 K/uL (0.00-0.02); Immature Granulocytes % (auto) 0.6 %; Lymphocytes # (auto) 1.31 K/uL (1.2-3.4); Lymphocytes % (auto) 16.5 %; Mean Corpuscular Hemoglobin 30.7 pg (25-34); Mean Corpuscular Hgb Conc 34.7 g/dL (32-36); Mean Corpuscular Volume 88.5 fL (80-100); Mean Platelet Volume 9.3 fL (7.4-10.4); Monocytes # (auto) 0.96 K/uL (0.11-0.59); Monocytes % (auto) 12.1 %; Neutrophils # (auto) 5.63 K/uL (1.4-6.5); Neutrophils % (auto) 70.7 %; Platelet Count 249 K/uL (130-400); RDW Coefficient of Variation 12.5 % (11.5-14.5); RDW Standard Deviation 40.1 fL (36.4-46.3); Red Blood Count 4.69 M/uL (4.2-5.4); White Blood Count 7.96 K/uL (4.8-10.8)
[2020-06-30 06:36] LABS: Albumin Globulin Ratio 0.7 (0.9-2); Albumin Level 2.6 gm/dl (3.4-5.0); BUN Creatinine Ratio 15.4 (10-20); Bilirubin,Total 0.4 mg/dl (0.2-1); Calcium 7.9 mg/dl (8.5-10.1); Creatinine Clr Calc Pharmacy 112.2 ml/min; Est GFR (African American) 123.6; Est GFR (Non-African American) 106.6; Globulin 3.7 gm/dl (2.5-4.0); Potassium 3.7 mmol/L (3.5-5.1); Total Protein 6.3 gm/dl (6.4-8.2)
[2020-06-30 06:40] LABS: C Reactive Protein 3.78 mg/dl (0-0.29); Ferritin 302.2 ng/ml (8-388)
[2020-06-30] MEDS: dexAMETHasone 6 MG in DEXTROSE 5% 25 ML IV SCH (08:00)
[2020-06-30] MEDS: DOXYCYCLINE HYCLATE 100 MG in DEXTROSE 5% 100 ML IV SCH ×2 (08:02→19:50)
[2020-06-30] MEDS: LACTOBACILLUS ACIDOPHILUS (FLORANEX) TAB PO SCH ×4 (08:05→20:28)
[2020-06-30] MEDS: FLUTICASONE/VILANTEROL 200/25MCG 14 PUFFS/INHALER INH SCH (08:06)
[2020-06-30] MEDS: CHOLECALCIFEROL 1,000 UNITS 25 MCG TAB PO SCH (08:07)
[2020-06-30] MEDS: UMECLIDINIUM BROMIDE 62.5MCG/BLISTER 7 PUFFS/INHALER INH SCH (08:07)
[2020-06-30] MEDS: ASCORBIC ACID 500 MG TAB PO SCH ×2 (08:07→19:50)
[2020-06-30] MEDS: MULTIVITAMIN TAB PO SCH (08:07)
[2020-06-30] MEDS: ZINC SULFATE 220 MG CAPSULE PO SCH (08:08)
[2020-06-30] MEDS ORDERED: COUGH DROP (SUGAR FREE) LOZ 24 LOZ/1 BOX BUCCAL PRN (09:43)
[2020-06-30] MEDS ORDERED: BENZONATATE 100 MG CAPSULE PO PRN (09:43)
[2020-06-30] MEDS: AMLODIPINE BESYLATE 5 MG TAB PO SCH (11:28)
--- NOTE | 2020-06-30 16:26 | Hospitalist Progress Note ---
Date of Service June 30, 2020 Assessment & Plan (1) COVID-19: Acute Respiratory Failure with Hypoxia COVID Pneumonitis CXR:Mild interstitial coarsening of the mid and lower lung zones is new from the 2015 exam. Differential considerations would include a nonspecific atypical pneumonitis versus fibrotic changes. Patient currently not interested in coalescent plasma. Provided information. No leukocytosis Mild lymphopenia ESR 31, CRP 7.39--Trending down Normal d-dimer Normal ferritin Normal procalcitonin Blood/sputum culture: Negative to date Continue Isolation precautions Continue IV dexamethasone 6mg daily Continue Rocephin, doxycycline Day #3 IV fluids as needed Continue home inhalers Continue supplemental oxygen as needed Doesn't meet criteria for Remdesivir as per Pulmonology Continue nutrition supplements Incentive spirometry We will repeat COVID screen and CXR tomorrow Antitussives PRN Abnormal UA UTI--ruled out Urine culture:No growth Diarrhea Likely due to COVID Will consider to R/O C diff if worsens Diarrhea improving COPD Past tobacco use--quit 2 years ago On IV dexamethasone as above Continue home inhalers Continue supplemental oxygen as needed Anxiety disorder On BuSpar intermittently Currently does not want to be continued on BuSpar Abnormal EKG Sinus tachycardia EKG changes likely secondary to his tachycardia Troponin negative Denies chest pain DVT Px: Lovenox SQ CODE STATUS Full code Disposition Expected discharge home when medically stable Admission and Anticipated Discharge Date Admission Date: June 28, 2020 Subjective Patient is seen and examined at bedside States feeling better today Cough, dyspnea improving Saturating well with minimal oxygen support Continues to have poor appetite No diarrhea today Denies chest pain, nausea, vomiting, abdominal pain, dizziness Review of Systems Review of Systems: All systems reviewed & are unremarkable except as noted in HPI & below Physical Exam Physical Exam: Physical Exam: Vitals signs as noted above General Appearance:Thin, frail, no apparent distress Head: normocephalic, Atraumatic Eyes: normal inspection, EOMI Neck: supple, Trachea midline Respiratory/Chest: Decreased breath sounds, CTA, No accessory muscle use Cardiovascular: S1, S2, No murmur Abdomen/GI:Soft, Non tender, Bowel sounds present Extremities/Musculoskelatal:normal inspection, no edema Neurologic/Psych:AAOX3, grossly no focal neurological deficits Skin: normal color, warm Results & Data Results & Data ([facility]) Vital Signs (Past 12 Hours) Vital Signs Temp Pulse Pulse Pulse Resp BP Pulse Ox 06/30/20 16:00 36.5 C 69 20 146/88 H 97 06/30/20 11:28 36.6 C 75 20 138/82 92 06/30/20 08:40 70 06/30/20 07:54 36.5 C 77 18 158/79 H 96 Laboratory Results Short CBC 06/30/20 Range/Units 05:43 WBC 7.96 (4.8-10.8) K/uL Hgb 14.4 (12.0-16.0) g/dL Hct 41.5 (37-47) % Plt Count 249 (130-400) K/uL BMP 06/30/20 05:43 Sodium 143 Potassium 3.7 Chloride 109 H Carbon Dioxide 28 BUN 7 Creatinine 0.48 L Glucose 91 Calcium 7.9 L Liver Function 06/30/20 Range/Units 05:43 Total Bilirubin 0.4 (0.2-1) mg/dl AST 19 (15-37) U/L ALT 34 (12-78) U/L Alkaline Phosphatase 48 (45-117) U/L Albumin 2.6 L (3.4-5.0) gm/dl
[2020-06-30] MEDS: ENOXAPARIN INJ 40 MG/0.4 ML SYR SQ SCH (19:48)
[2020-06-30] MEDS: cefTRIAXone SODIUM 1,000 MG in DEXTROSE 5% 50 ML IV SCH (19:50)
[2020-07-01 06:46] LABS: Basophils # (auto) 0.01 K/uL (0-0.2); Basophils % (auto) 0.2 %; Eosinophils # (auto) 0.01 K/uL (0-0.5); Eosinophils % (auto) 0.2 %; Hematocrit (blood only) 40.3 % (37-47); Hemoglobin 13.6 g/dL (12.0-16.0); Immature Granulocytes # (auto) 0.04 K/uL (0.00-0.02); Immature Granulocytes % (auto) 0.6 %; Lymphocytes # (auto) 1.47 K/uL (1.2-3.4); Mean Corpuscular Hemoglobin 30.2 pg (25-34); Mean Corpuscular Hgb Conc 33.7 g/dL (32-36); Mean Corpuscular Volume 89.4 fL (80-100); Monocytes # (auto) 0.93 K/uL (0.11-0.59); Monocytes % (auto) 14.6 %; Neutrophils # (auto) 3.93 K/uL (1.4-6.5); Neutrophils % (auto) 61.4 %; Platelet Count 321 K/uL (130-400); RDW Coefficient of Variation 12.4 % (11.5-14.5); RDW Standard Deviation 40.3 fL (36.4-46.3); Red Blood Count 4.51 M/uL (4.2-5.4); White Blood Count 6.39 K/uL (4.8-10.8)
[2020-07-01 07:34] LABS: Albumin Globulin Ratio 0.8 (0.9-2); Albumin Level 2.7 gm/dl (3.4-5.0); BUN Creatinine Ratio 15.9 (10-20); Bilirubin,Total 0.5 mg/dl (0.2-1); C Reactive Protein 1.75 mg/dl (0-0.29); Calcium 8.3 mg/dl (8.5-10.1); Creatinine Clr Calc Pharmacy 103.5 ml/min; Est GFR (African American) 120.4; Est GFR (Non-African American) 103.9; Ferritin 244.8 ng/ml (8-388); Globulin 3.4 gm/dl (2.5-4.0); Total Protein 6.1 gm/dl (6.4-8.2)
[2020-07-01] MEDS: DOXYCYCLINE HYCLATE 100 MG in DEXTROSE 5% 100 ML IV SCH ×2 (07:58→20:28)
[2020-07-01] MEDS: MULTIVITAMIN TAB PO SCH (08:01)
[2020-07-01] MEDS: LACTOBACILLUS ACIDOPHILUS (FLORANEX) TAB PO SCH ×4 (08:01→20:29)
[2020-07-01] MEDS: ASCORBIC ACID 500 MG TAB PO SCH ×2 (08:01→20:30)
[2020-07-01] MEDS: CHOLECALCIFEROL 1,000 UNITS 25 MCG TAB PO SCH (08:01)
[2020-07-01] MEDS: ZINC SULFATE 220 MG CAPSULE PO SCH (08:01)
[2020-07-01] MEDS: AMLODIPINE BESYLATE 5 MG TAB PO SCH (08:01)
[2020-07-01] MEDS: UMECLIDINIUM BROMIDE 62.5MCG/BLISTER 7 PUFFS/INHALER INH SCH (08:02)
[2020-07-01] MEDS: FLUTICASONE/VILANTEROL 200/25MCG 14 PUFFS/INHALER INH SCH (08:02)
[2020-07-01] MEDS: dexAMETHasone 6 MG in DEXTROSE 5% 25 ML IV SCH (08:02)
[2020-07-01 08:25] LABS: Potassium 3.5 mmol/L (3.5-5.1)
[2020-07-01 08:30] LABS: Magnesium 2.2 mg/dl (1.8-2.4)
--- NOTE | 2020-07-01 08:51 | XRay Report ---
XR chest 1V portable CLINICAL HISTORY: COVID-19 positive, RESPIRATORY DIFFICULTY COMPARISON STUDY: 06/28/2020 FINDINGS: The heart is normal in size. The patient is mildly hyperinflated. There is no focal pulmona ry consolidation. There is no failure. There is slight blunting of the lateral costophrenic angles. T race pleural effusions cannot be excluded. IMPRESSION: Hyperinflation. No evidence of focal pulmonary consolidation. Trace pleural effusions can not be excluded ACT 112: Negative or not required by law. Electronically signed by: Kit Biggs M.D. 07/01/2020 8:50 AM
--- NOTE | 2020-07-01 12:53 | Hospitalist Progress Note ---
Date of Service July 01, 2020 Assessment & Plan (1) COVID-19: Acute Respiratory Failure with Hypoxia COVID Pneumonitis symptomatically improved : Blood/sputum culture: Negative to date Continue Isolation precautions repeat COVID 19 test 07/01: positive Continue IV dexamethasone 6mg daily on Rocephin, doxycycline Day #4 will dc Rocephin complete PO doxy for total 10 days course not requiring supplemental oxygen/in room air Abnormal UA UTI--ruled out Urine culture:No growth COPD Past tobacco use--quit 2 years ago On IV dexamethasone as above Continue home inhalers no wheeze will change to PO steroid with taper Anxiety disorder On BuSpar intermittently Currently does not want to be continued on BuSpar DVT Px: Lovenox SQ CODE STATUS Full code Disposition Expected discharge home when medically stable Admission and Anticipated Discharge Date Admission Date: June 28, 2020 Subjective still has productive cough afebrile no complain of body aches or pain in room air Review of Systems Review of Systems: All systems reviewed & are unremarkable except as noted in HPI & below Physical Exam Constitutional: WD/WN, vitals as above no acute distress Eyes: PERRL, conjunctivae normal, anicteric sclerae ENMT: external ear and nose normal, oropharynx normal Neck: trachea midline, no thyromegaly Respiratory: normal respiratory effort and + cough; no respiratory distress Cardiovascular: RRR, no murmur, no edema Gastrointestinal (Abdomen): normal bowel sounds, soft, nontender, no hepatosplenomegaly Musculoskeletal: no cyanosis or clubbing, extremities motor strength 5/5 Skin: no rashes, warm and dry Neurologic: PERRL, EOMI, accommodation nl, no face palsy, no dysarthria Psychiatric: A+Ox3, euthymic affect Results & Data Results & Data ([facility]) Vital Signs (Past 12 Hours) Vital Signs Temp Pulse Pulse Resp BP BP Pulse Ox 07/01/20 10:25 36.8 C 74 19 117/68 92 07/01/20 08:00 36.9 C 82 16 163/92 H 96 07/01/20 04:20 175/90 H 07/01/20 04:00 36.5 C 68 16 177/111 H 97
[2020-07-01] MEDS: cefTRIAXone SODIUM 1,000 MG in DEXTROSE 5% 50 ML IV SCH (20:28)
[2020-07-01] MEDS: ENOXAPARIN INJ 40 MG/0.4 ML SYR SQ SCH (20:30)
[2020-07-02] MEDS ORDERED: HydrALAZINE HCL 20 MG/ML VIAL IV STA (00:29)
[2020-07-02] MEDS ORDERED: HydrALAZINE HCL 20 MG/ML VIAL ONE (02:49)
[2020-07-02] MEDS: DOXYCYCLINE HYCLATE 100 MG in DEXTROSE 5% 100 ML IV SCH (08:23)
[2020-07-02] MEDS: dexAMETHasone 6 MG in DEXTROSE 5% 25 ML IV SCH (08:23)
[2020-07-02] MEDS: LACTOBACILLUS ACIDOPHILUS (FLORANEX) TAB PO SCH ×2 (08:24→12:00)
[2020-07-02] MEDS: CHOLECALCIFEROL 1,000 UNITS 25 MCG TAB PO SCH (08:25)
[2020-07-02] MEDS: MULTIVITAMIN TAB PO SCH (08:25)
[2020-07-02] MEDS: ZINC SULFATE 220 MG CAPSULE PO SCH (08:25)
[2020-07-02] MEDS: ASCORBIC ACID 500 MG TAB PO SCH (08:25)
[2020-07-02] MEDS: AMLODIPINE BESYLATE 5 MG TAB PO SCH (08:25)
[2020-07-02] MEDS: UMECLIDINIUM BROMIDE 62.5MCG/BLISTER 7 PUFFS/INHALER INH SCH (08:25)
[2020-07-02] MEDS: FLUTICASONE/VILANTEROL 200/25MCG 14 PUFFS/INHALER INH SCH (08:26)
[2020-07-02] MEDS ORDERED: AMLODIPINE BESYLATE 5 MG TAB PO ONE (10:15)
--- NOTE | 2020-07-02 10:19 | Hospitalist Progress Note ---
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 and total 10 days of p.o. dexamethasone On p.o. doxycycline Day #5 of antibiotic complete PO doxy for total 10 days course Case reviewed with on-call infectious disease doctor in [facility] Recommendations are: Patient needs to complete 10 days of p.o. doxycycline/10 days of p.o. dexamethasone 6 mg daily As patient's whole family members are positive for COVID-19, self isolation while at home may not be necessary Needs to stay quarantined signed at home with rest of the family members for at least 20 days from beginning of the symptoms Patient's serology can stay positive for COVID-19 up to 3 months Per ID recommends no repeat of COVID-19 test is necessary if patient remains symptomatic Hypertension: Newly diagnosed Pressure has been persistently elevated above goal SBP between 150/160 Patient was started with low-dose Norvasc 2.5 mg daily by previous hospitalist Dr. Sabillon Last night SBP was 180 /diastolic BP was 100 She did not had any symptom Norvasc dose increased to 5 mg daily-will be discharged with 5 mg daily dose Needs follow-up with family physician for monitoring of blood pressure and adjustment of BP meds if needed Patient is given instruction for low-salt diet COPD Past tobacco use--quit 2 years ago No wheeze, no shortness of breath or hypoxia Patient is discharged with p.o. dexamethasone/steroid for COVID-19 pneumonitis DVT Px: Lovenox SQ CODE STATUS Full code Disposition Stable to be discharged home today Patient is given instructions for COVID-19 positive self-care/isolation at home Plan of care and discharge instruction explained and discussed to patient in detail over phone , all questions answered Admission and Anticipated Discharge Date Admission Date: June 28, 2020 Subjective Plan of care, patient interview, discharge planning was done after discussing with patient over phone Direct inpatient contact get limited to reduce the risk of COVID-19 exposure Patient reports of having an uneventful night, no fever or chills, vitals been stable Cough has improved no nonproductive, no sore throat Denies of any shortness of breath, Feels like her baseline, comfortable to get discharged and return home Physical Exam Physical Exam: Physical exam from 07/01/2020 Direct person patient care was not done to limit infection exposure, patient has clinically improved to baseline Constitutional: WD/WN, vitals as above no acute distress Eyes: PERRL, conjunctivae normal, anicteric sclerae ENMT: external ear and nose normal, oropharynx normal Neck: trachea midline, no thyromegaly Respiratory: normal respiratory effort and + cough; no respiratory distress Cardiovascular: RRR, no murmur, no edema Gastrointestinal (Abdomen): normal bowel sounds, soft, nontender, no hepatosplenomegaly Musculoskeletal: no cyanosis or clubbing, extremities motor strength 5/5 Skin: no rashes, warm and dry Neurologic: PERRL, EOMI, accommodation nl, no face palsy, no dysarthria Psychiatric: A+Ox3, euthymic affect Results & Data Results & Data ([facility]) Vital Signs (Past 12 Hours) Vital Signs Temp Pulse Pulse Resp BP Pulse Ox 07/02/20 08:00 37.0 C 65 16 150/72 H 93 07/02/20 07:53 36.5 C 55 L 16 145/68 H 96 07/02/20 04:00 36.7 C 58 L 17 155/79 H 96 07/02/20 01:00 162/76 H 07/02/20 00:00 36.6 C 66 17 186/113 H 92
--- NOTE | 2020-07-02 15:00 | Discharge Summary ---
Date of Service July 02, 2020 Admission HPI Per Admitting Provider Patient is a 59-year-old female with history of COPD, past tobacco use disorder, anxiety disorder and other medical problems presents with history of worsening shortness of breath since about 10 days duration. 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 Patient was tested positive for COVID on June 23, 2020. She admits to have dry cough since 10 days duration which progressively worsened with greenish expectoration but denies any hemoptysis. Shortness of breath has been progressively worsened over the last few days which is worse with exertion. She had fever associated with chills for couple of days and currently afebrile. She admits to have very poor appetite and have lost about 9 pounds in 9 days. She also reports having diarrhea for a couple of days which currently resolved. She did have headache which improved with medications. Still have loss of taste and smell currently. She quit smoking 2 years ago. She currently takes BuSpar for anxiety intermittently and currently states that she does not require it for management of her anxiety. Denies any history of chest pain, palpitations, dizziness, pedal edema, fall, head trauma, LOC, change in vision, blood in stools, hematuria, recent change in medications. She is currently not interested in cortisone plasma transfusion and would like to know more information about the same. Principal Diagnosis COVID-19 positive COVID-19 pneumonitis Hypertension/high blood pressure: Newly diagnosed Discharge Exam Physical exam from 07/01/2020 Direct person patient care was not done to limit infection exposure, patient has clinically improved to baseline Constitutional WD/WN, vitals as above no acute distress Eyes PERRL, conjunctivae normal, anicteric sclerae ENMT external ear and nose normal, oropharynx normal Neck trachea midline, no thyromegaly Respiratory normal respiratory effort and + cough; no respiratory distress Cardiovascular RRR, no murmur, no edema Gastrointestinal (Abdomen) normal bowel sounds, soft, nontender, no hepatosplenomegaly Musculoskeletal no cyanosis or clubbing, extremities motor strength 5/5 Skin no rashes, warm and dry Neurologic PERRL, EOMI, accommodation nl, no face palsy, no dysarthria Psychiatric A+Ox3, euthymic affect Discharge Data Allergies Allergy/AdvReac Type Severity Reaction Status Date / Time No Known Allergies Allergy Unverified 06/28/20 15:20 Consultations 06/28/20 17:15 ED Decision to Admit Stat Hospital Course (1) COVID-19: Presented with acute Respiratory Failure with Hypoxia COVID Pneumonitis Clinically stable to be discharged, stable vitals, has been afebrile/No fever for last 72 hours/has not required any Tylenol, No hypoxia in room air Cough has improved Chest x-ray on 07/01: Showed no infiltrate/no consolidation sputum gram stain : many WBC , gram positive cocci , gram negative bacilli ( suggestive of normal cassie ) culture : 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 and total 10 days of p.o. dexamethasone On p.o. doxycycline Day #5 of antibiotic complete PO doxy for total 10 days course Case reviewed with on-call infectious disease doctor in [facility] Recommendations are: Patient needs to complete 10 days of p.o. doxycycline/10 days of p.o. dexamethasone 6 mg daily As patient's whole family members are positive for COVID-19, self isolation while at home may not be necessary Needs to stay quarantined signed at home with rest of the family members for at least 20 days from beginning of the symptoms Patient's serology can stay positive for COVID-19 up to 3 months Per ID recommends no repeat of COVID-19 test is necessary if patient remains symptomatic Hypertension: Newly diagnosed Pressure has been persistently elevated above goal SBP between 150/160 Patient was started with low-dose Norvasc 2.5 mg daily by previous hospitalist Dr. Sabillon Last night SBP was 180 /diastolic BP was 100 She did not had any symptom Norvasc dose increased to 5 mg daily-will be discharged with 5 mg daily dose Needs follow-up with family physician for monitoring of blood pressure and adjustment of BP meds if needed Patient is given instruction for low-salt diet COPD Past tobacco use--quit 2 years ago No wheeze, no shortness of breath or hypoxia Patient is discharged with p.o. dexamethasone/steroid for COVID-19 pneumonitis DVT Px: Lovenox SQ CODE STATUS Full code Disposition Stable to be discharged home today Patient is given instructions for COVID-19 positive self-care/isolation at home Plan of care and discharge instruction explained and discussed to patient in detail over phone , all questions answered Total Time Total Time Spent Total Time Spent (In Minutes): approx 30 minutes Total Time Includes: Discharge Planning, Medication Reconciliation, Communication With Other Providers (matthew Rodriguez infectious disease) and Other (Direct patient care/in person patient exam was not done on day of discharge) Discharge Plan Discharge Items Patient Disposition: Home - Self-Care Reason For Visit: COVID PNEUMONITIS Discharge Diagnosis: COVID-19 positive COVID-19 pneumonitis Hypertension/high blood pressure: Newly diagnosed Activity: Resume your previous activity Non-emergency contact: Primary Care Provider Call non-emergency contact if: you have any medication questions Follow-up/Referrals: Morgan Ann MD [Primary Care Provider] - 07/09/20 11:00 am (Date & Time 07/09/2020 11:00 AM Provider Morgan Ann MD THIS IS A TELEHEALTH APPOINTMENT, DO NOT GO TO THE CLINIC. YOU WILL RECEIVE A LINK TO THE APPOINTMENT TO YOUR EMAIL, [email or web address] IF THIS EMAIL ADDRESS IS INCORRECT OR IF YOU NEED TO RESCHEDULE, PLEASE CALL [phone]. ) Diet: Heart Healthy and Low Sodium (2gm) Addtl Attending Provider Instructions: You are diagnosed with COVID-19 pneumonitis, 1. You need to continue antibiotic: Doxycycline 100 mg 1 tablet twice daily for 5 more dayssent to your pharmacy. 2. Take steroids: Dexamethasone 6 mg 1 tablet daily for 6 more days. 3. You are found to have hypertension/high blood pressure during this hospital stay You are started on a blood pressure medication: Norvasc 5 mg take 1 tablet daily You need to follow-up with your family physician for further monitoring of your blood pressure and adjustment of blood pressure medications if needed Please avoid salt in your food, which will help to maintain your blood pressure in good control. You are required to complete quarantine /isolation from community total 20 days from the onset of your symptoms total 20 days from onset of your symptoms Please always wear a facemask outside the house Your family physician will contact you for a video clinic follow-up for this hospital visit Please notify your family physician or return to ER, with any onset of shortness of breath worsening of cough, fever body aches, loss of sense sensation of smell or taste. Pending Studies at Discharge: No Stand-Alone Forms: My [facility] [place], Smoking Cessation Medications and DC Order Prescriptions: New doxycycline hyclate 100 mg Capsule 100 mg PO BID 5 Days Qty: 10 RF: 0 amlodipine [Norvasc] 5 mg Tablet 5 mg PO QAM Qty: 30 RF: 3 dexamethasone 6 mg tablet 6 mg PO DAILY 6 Days Qty: 6 RF: 0 Continued buspirone 5 mg tablet 10 mg PO BID PRN (Reason: Anxiety) RF: 0 acetaminophen [Tylenol Extra Strength] 500 mg Tablet 1,000 mg PO Q6H PRN (Reason: Fever Or Pain) RF: 0 albuterol sulfate 90 mcg/actuation HFA aerosol inhaler 2 inh INHALATION UD PRN (Reason: Shortness Of Breath Or Wheezing) RF: 0 multivitamin Tablet,Chewable 1 tab PO DAILY RF: 0 Incruse Ellipta 62.5 mcg/actuation blister with device 1 inh INHALATION DAILY RF: 0 Breo Ellipta 200-25 mcg/dose blister with device 1 inh INHALATION DAILY RF: 0 Discharge Orders: Discharge Order (Routine); Ordered 07/02/20 Ordered By: Madhuri Moses/Other Patient Handouts: COVID-19 Home Care, Low-Salt Choices, Diet Low Salt Dc Admission Data Admit Date/Time: 06/28/20 18:06 Attending Provider: Madhuri Leyva Admit Provider: Israel Lomeli Primary Care Provider: Morgan Ann Other Providers: Israel Lomeli Other Interventions: Discharge Summary Assessment (RN) Last Done: 07/02/20 12:01
[2020-07-02] MEDS ORDERED: DOXYCYCLINE HYCLATE 100 MG CAP PO SCH (21:00)
== END 2020-07-02 14:15 | disposition home or self-care (01) | DRG 177 ==
LOC: ED 13:51 → 2E 18:06 → SUATTDRO 18:06 → 2E 19:20